=== PATIENT | female | born 1960 | race Asian ===

== ENCOUNTER 2019-04-26 09:18 | Day surgery (SDC) | payer OTHER ==
[~2019-04-26] VITALS: Ht 152.4 cm; Wt 54.4 kg
[2019-04-26] MEDS ORDERED: fentaNYL 0.05 MG/ML VIAL ONE (11:56)
[2019-04-26] MEDS ORDERED: LIDOCAINE 2% 100 MG/5 ML UJET TP ONE (11:56)
[2019-04-26] MEDS ORDERED: fentaNYL 0.05 MG/ML VIAL IVP ONE (12:30)
== END 2019-04-26 13:25 | disposition home or self-care (01) ==
LOC: MOR 09:18 → MTU 09:19 → MOR 13:25
PROVIDERS: ATTEND Internal Medicine Gastroenterology
DX: R14.0 Abdominal distension (gaseous) (principal)
CPT/HCPCS: 45378; J3010